=== PATIENT | female | born 1975 | race Caucasian/White ===

== ENCOUNTER 2024-04-21 11:10 | Observation (INO) | payer OTHER ==
[2024-04-21] MEDS: SODIUM CHLORIDE 0.9% 2,000 ML IV ONE (11:46)
[2024-04-21 12:10] LABS: ALT 28 U/L (4-34); AST 53 U/L (14-36); African American GFR (CKD) >90 (>60 ml/min/1.73 sqM); Albumin 4.9 g/dL (3.5-5.0); Alkaline Phosphatase 59 U/L (38-126); Anion Gap 8 mmol/L; Blood Urea Nitrogen 9 mg/dL (7-17); Calcium 9.7 mg/dL (8.4-10.2); Carbon Dioxide 26 mmol/L (22-30); Chloride 107 mmol/L (98-107); Glucose 97 mg/dL (74-99); Non-African American GFR(CKD) >90 (>60 ml/min/1.73 sqM); Potassium 4.3 mmol/L (3.5-5.1); Sodium 141 mmol/L (137-145); Total Bilirubin 0.7 mg/dL (0.2-1.3); Total Protein 8.1 g/dL (6.3-8.2)
[2024-04-21 12:15] LABS: HCT 45.8 % (34.0-46.0); HGB 15.2 gm/dL (11.4-16.0); MCH 32.5 pg (25.0-35.0); MCHC 33.1 g/dL (31.0-37.0); MCV 98.2 fL (80.0-100.0); Mean Platelet Volume 7.1; Platelet Count 235 k/uL (150-450); RBC 4.66 m/uL (3.80-5.40); RDW 13.4 % (11.5-15.5); WBC 5.7 k/uL (3.8-10.6)
--- NOTE | 2024-04-21 12:40 | ED ---
Alcohol HPI - General Chief Complaint: Alcohol Stated Complaint: etoh Time Seen by Provider: 04/21/24 11:13 Source: patient, EMS, RN notes reviewed Mode of arrival: EMS Limitations: no limitations - History of Present Illness Initial Comments: 48-year-old female presents emergency department via EMS from [facility] for alcohol intoxication. Patient was checking in for rehab breath alcohol was greater than.2 and sent here. Patient has no complaints. Patient does admit that she is a daily drinker. She denies any nausea vomiting chest pain headache dizziness no physical complaints no other associate symptoms denies drug abuse. - Related Data Home Medications Medication Instructions Recorded Confirmed No Known Home Medications 04/21/24 04/21/24 Allergies Allergy/AdvReac Type Severity Reaction Status Date / Time No Known Allergies Allergy Verified 04/21/24 13:40 Review of Systems ROS Statement: Those systems with pertinent positive or pertinent negative responses have been documented in the HPI. ROS Other: All systems not noted in ROS Statement are negative. Past Medical History Past Medical History: Hypertension History of Any Multi-Drug Resistant Organisms: None Reported Past Surgical History: Orthopedic Surgery Additional Past Surgical History / Comment(s): Bilat feet surgery, pt unable to answer why Past Psychological History: Anxiety, Depression, PTSD Smoking Status: Never smoker Past Alcohol Use History: Abuse, Daily Past Drug Use History: None Reported General Exam Limitations: no limitations General appearance: alert, in no apparent distress Head exam: Present: atraumatic, normocephalic, normal inspection Eye exam: Present: normal appearance, PERRL, EOMI. Absent: scleral icterus, conjunctival injection, periorbital swelling ENT exam: Present: normal exam, normal oropharynx, mucous membranes moist Neck exam: Present: normal inspection, full ROM. Absent: tenderness, meningismus, lymphadenopathy Respiratory exam: Present: normal lung sounds bilaterally. Absent: respiratory distress, wheezes, rales, rhonchi, stridor Cardiovascular Exam: Present: regular rate, normal rhythm, normal heart sounds. Absent: systolic murmur, diastolic murmur, rubs, gallop, clicks Neurological exam: Present: alert, oriented X3, CN II-XII intact Skin exam: Present: warm, dry, intact, normal color. Absent: rash Course Vital Signs 04/21/24 04/21/24 04/21/24 11:12 13:01 15:05 Temperature 98.5 F 98.0 F 98.0 F Pulse Rate 103 H 94 85 Respiratory 18 18 17 Rate Blood Pressure 128/90 130/82 110/74 O2 Sat by Pulse 97 97 97 Oximetry Medical Decision Making - Medical Decision Making Was pt. sent in by a medical professional or institution (, ZACKERY, MANAGER OF TRAINING AND DEVELOPMENT, urgent care, hospital, or half-way...) When possible be specific @ -[facility] Did you speak to anyone other than the patient for history (EMS, parent, family, police, friend...)? What history was obtained from this source @ -No Did you review nursing and triage notes (agree or disagree)? Why? @ -I reviewed and agree with nursing and triage notes Were old charts reviewed (outside hosp., previous admission, EMS record, old E KG, old radiological studies, urgent care reports/EKG's, half-way records)? Report findings @ -No old charts were reviewed Differential Diagnosis (chest pain, altered mental status, abdominal pain women, abdominal pain men, vaginal bleeding, weakness, fever, dyspnea, syncope, headache, dizziness, GI bleed, back pain, seizure, CVA, palpatations, mental health, musculoskeletal)? @ -Alcohol intoxication, alcohol abuse, alcohol withdrawal EKG interpreted by me (3pts min.). @ -None X-rays interpreted by me (1pt min.). @ -None done CT interpreted by me (1pt min.). @ -None done U/S interpreted by me (1pt. min.). @ -None done What testing was considered but not performed or refused? (CT, X-rays, U/S, labs)? Why? @ -None What meds were considered but not given or refused? Why? @ -None Did you discuss the management of the patient with other professionals (professionals i.e. ZACKERY Islas, MANAGER OF TRAINING AND DEVELOPMENT, lab, RT, psych nurse, social work program coordinator, director print, teacher, division officer weapons department, immigration case worker)? Give summary @ -Dr. Rivas for admission for alcohol intoxication, alcohol abuse Was smoking cessation discussed for >3mins.? @ -No Was critical care preformed (if so, how long)? @ -No Were there social determinants of health that impacted care today? How? (Homelessness, low income, unemployed, alcoholism, drug addiction, transportation, low edu. Level, literacy, decrease access to med. care, correction, rehab)? @ -No Was there de-escalation of care discussed even if they declined (Discuss DNR or withdrawal of care, Hospice)? DNR status @ -No What co-morbidities impacted this encounter? (DM, HTN, Smoking, COPD, CAD, Cancer, CVA, ARF, Chemo, Hep., AIDS, mental health diagnosis, sleep apnea, morbid obesity)? @ -None Was patient admitted / discharged? Hospital course, mention meds given and route, prescriptions, significant lab abnormalities, going to OR and other pertinent info. @ -Admitted patient sent in from [facility] for severe alcohol desiccation blood alcohol is 373, other laboratory studies unremarkable case discussed with admitting patient placed on CIWA, alcohol withdrawal Undiagnosed new problem with uncertain prognosis? @ -No Drug Therapy requiring intensive monitoring for toxicity (Heparin, Nitro, Insulin, Cardizem)? @ -No Were any procedures done? @ -No Diagnosis/symptom? @ -Alcohol intoxication, alcohol abuse Acute, or Chronic, or Acute on Chronic? @ -Acute Uncomplicated (without systemic symptoms) or Complicated (systemic symptoms)? @ -Complicated Side effects of treatment? @ -No Exacerbation, Progression, or Severe Exacerbation? @ -No Poses a threat to life or bodily function? How? (Chest pain, USA, ND, pneumonia, PE, COPD, DKA, ARF, appy, cholecystitis, CVA, Diverticulitis, Homicidal, Suicidal, threat to staff... and all critical care pts) @ -Yes alcohol withdrawal - Lab Data Result diagrams: 04/21/24 11:41 04/21/24 11:41 Lab Results 04/21/24 04/21/24 04/21/24 Range/Units 11:41 11:41 14:05 WBC 5.7 (3.8-10.6) k/uL RBC 4.66 (3.80-5.40) m/uL Hgb 15.2 (11.4-16.0) gm/dL Hct 45.8 (34.0-46.0) % MCV 98.2 (80.0-100.0) fL MCH 32.5 (25.0-35.0) pg MCHC 33.1 (31.0-37.0) g/dL RDW 13.4 (11.5-15.5) % Plt Count 235 (150-450) k/uL MPV 7.1 Neutrophils % (Manual) 59 % Lymphocytes % (Manual) 27 % Monocytes % (Manual) 13 % Eosinophils % (Manual) 1 % Neutrophils # (Manual) 3.36 (1.3-7.7) k/uL Lymphocytes # (Manual) 1.54 (1.0-4.8) k/uL Monocytes # (Manual) 0.74 (0-1.0) k/uL Eosinophils # (Manual) 0.06 (0-0.7) k/uL Nucleated RBCs 0 (0-0) /100 WBC Manual Slide Review Performed RBC Morphology Normal Sodium 141 (137-145) mmol/L Potassium 4.3 (3.5-5.1) mmol/L Chloride 107 (98-107) mmol/L Carbon Dioxide 26 (22-30) mmol/L Anion Gap 8 mmol/L BUN 9 (7-17) mg/dL Creatinine 0.70 (0.52-1.04) mg/dL Est GFR (CKD-EPI)AfAm >90 (>60 ml/min/1.73 sqM) Est GFR (CKD-EPI)NonAf >90 (>60 ml/min/1.73 sqM) Glucose 97 (74-99) mg/dL Calcium 9.7 (8.4-10.2) mg/dL Magnesium 2.0 (1.6-2.3) mg/dL Total Bilirubin 0.7 (0.2-1.3) mg/dL AST 53 H (14-36) U/L ALT 28 (4-34) U/L Alkaline Phosphatase 59 (38-126) U/L Total Protein 8.1 (6.3-8.2) g/dL Albumin 4.9 (3.5-5.0) g/dL Serum Alcohol 373 H* mg/dL Disposition Clinical Impression: Alcoholic intoxication, Alcohol abuse Disposition: ADMITTED IP TO THIS HOSP Condition: Stable Is patient prescribed a controlled substance at d/c from ED?: No Referrals: None,Stated [Primary Care Provider] - 1-2 days Time of Disposition: 13:42
[2024-04-21 13:47] LABS: Eosinophils # (M) 0.06 k/uL (0-0.7); Lymphocytes # (M) 1.54 k/uL (1.0-4.8); Monocytes # (M) 0.74 k/uL (0-1.0); Neutrophils # (M) 3.36 k/uL (1.3-7.7); Neutrophils % (M) 59 %; Nucleated Red Blood Cells 0 /100 WBC (0-0); Total Cells Counted 100
[2024-04-21 13:48] LABS: RBC Morphology Normal
[2024-04-21 15:10] LABS: Appearance,Urine Clear (Clear); Bilirubin,Urine Negative (Negative); Blood,Urine Negative (Negative); Color,Urine Colorless; Glucose,Urine (UA) Negative (Negative); Ketones,Urine Negative (Negative); Leukocyte Esterase,Urine Negative (Negative); Nitrite,Urine Negative (Negative); Protein,Urine Negative (Negative); Specific Gravity,Urine 1.004 (1.001-1.035); Urobilinogen,Urine <2.0 mg/dL (<2.0)
[2024-04-21] MEDS ORDERED: LORazepam 2 MG/ML INJ IV PRN ×3 (15:12)
[2024-04-21] MEDS ORDERED: ONDANSETRON 4 MG/2 ML VIAL IVP PRN (15:13)
[2024-04-21] MEDS ORDERED: NALOXONE 0.4 MG/ML 1 ML VIAL IV PRN (15:13)
[2024-04-21] MEDS ORDERED: IBUPROFEN 400 MG TAB PO PRN (15:13)
[2024-04-21] MEDS: SODIUM CHLORIDE 0.9% 1,000 ML IV SCH (15:22)
[2024-04-21 15:41] LABS: Amphetamine Screen,Urine Not Detected (NotDetected); Barbiturate Screen,Urine Not Detected (NotDetected); Benzodiazepines Screen,Urine Detected (NotDetected); Cocaine Screen,Urine Not Detected (NotDetected); Methadone Screen, Urine Not Detected (NotDetected); Opiate Screen,Urine Not Detected (NotDetected); Oxycodone Screen, Urine Not Detected (NotDetected); Phencyclidine Screen,Urine Not Detected (NotDetected); Tricyclic Antidepressant,Urine Not Detected (NotDetected); Urn Cannabinoid Scrn Not Detected (NotDetected)
--- NOTE | 2024-04-21 16:16 | P.HPIM ---
History of Present Illness H&P Date: 04/21/24 Chief Complaint: Alcohol withdrawal [id number] white female who reported the hospital with alcohol intoxication. Last drink was 2 days ago as per patient patient was found to be drinking in the emergency room. She reports anxiety and tremors associated with chills. She denies subjective fever, no diarrhea, no nausea no vomiting. No hematuria dysuria hematemesis or hematochezia. At the time of examination patient appears to be slightly oriented. She does not appear to be in distress. Review of Systems 10 systems reviewed, pertinent positive and negative findings as in HPI, no chest pain no abdominal pain. Past Medical History Past Medical History: Hypertension History of Any Multi-Drug Resistant Organisms: None Reported Past Surgical History: Orthopedic Surgery Additional Past Surgical History / Comment(s): Bilat feet surgery, pt unable to answer why Past Psychological History: Anxiety, Depression, PTSD Smoking Status: Never smoker Past Alcohol Use History: Abuse, Daily Past Drug Use History: None Reported Medications and Allergies Home Medications Medication Instructions Recorded Confirmed Type No Known Home Medications 04/21/24 04/21/24 History Allergies Allergy/AdvReac Type Severity Reaction Status Date / Time No Known Allergies Allergy Verified 04/21/24 13:40 Physical Exam Vitals: Vital Signs Temp Pulse Resp BP Pulse Ox 04/21/24 15:05 98.0 F 85 17 110/74 97 04/21/24 13:01 98.0 F 94 18 130/82 97 04/21/24 11:12 98.5 F 103 H 18 128/90 97 Intake and Output 04/21/24 04/21/24 04/21/24 06:59 14:59 22:59 Other: Weight 58.967 kg Constitutional: No acute distress, conversant, pleasant Eyes: Anicteric sclerae, moist conjunctiva, no lid-lag, PERRLA ENMT: NC/AT,Oropharynx clear, no erythema, exudates Neck:Supple, FROM, no masses, or JVD, No carotid bruits; No thyromegaly Lungs: Clear to auscultation, Clear to percussion, Normal respiratory effort, no accessory muscle use Cardiovascular: Heart regular in rate and rhythm, No murmurs, gallops, or rubs no peripheral edema Abdominal: Soft Nontender, nom distended, no guarding, no rebound or rigidity, Normoactive bowel sounds No hepatomegaly, No splenomegaly, No palpable mass No abdominal wall hernia noted Skin: Normal temperature, tone, texture, turgor, No induration No subcutaneous nodules, No rash, lesions, No ulcers Extremities:No digital cyanosis No clubbing, Pedal pulses intact and symmetric al Radial pulses intact and symmetrical Normal gait and station, No calf tenderness Psychiatric: Alert and oriented to person, place and time, Appropriate affect Intact judgement Neuro: Muscles Strength 5/5 in all 4 extremities, Sensation to light touch grossly present throughout, Cranial nerves II-XII grossly intact. No focal sensory deficits Results CBC & Chem 7: 04/21/24 11:41 04/21/24 11:41 Labs: Abnormal Lab Results - Last 24 Hours (Table) 04/21/24 04/21/24 04/21/24 Range/Units 11:41 14:05 Unknown AST 53 H (14-36) U/L U Benzodiazepines Scrn Detected H (NotDetected) Serum Alcohol 373 H* mg/dL Assessment and Plan Plan: Assessment: 1. Alcohol use/dependence with Withdrawal symptoms, [facility] protocol, supportive care. IV Fluids.Vitamins. 2.Anxiety: Anxiolytics when necessary.
[2024-04-21] MEDS: LORazepam 0.5 MG TAB PO PRN (23:23)
[2024-04-22] MEDS: THIAMINE 100 MG TAB PO SCH (09:32)
[2024-04-22] MEDS: LORazepam 1 MG TAB PO PRN (09:39)
--- NOTE | 2024-04-22 09:40 | P.PN ---
Subjective Progress Note Date: 04/22/24 Feels better today, still feels anxious and nauseated, no vomiting, no chest pain, no abdominal pain, Remains afebrile Objective - Vital Signs Vital signs: Vital Signs Temp 98.6 F 04/22/24 07:00 Pulse 65 04/22/24 07:00 Resp 16 04/22/24 07:00 BP 137/90 04/22/24 07:00 Pulse Ox 98 04/22/24 07:00 FiO2 Intake & Output 04/21/24 04/22/24 04/22/24 18:59 06:59 18:59 Weight 58.967 kg 58.967 kg Other: # Voids 3 - Exam Constitutional: No acute distress, conversant, pleasant Eyes: Anicteric sclerae, moist conjunctiva, no lid-lag, PERRLA ENMT: NC/AT,Oropharynx clear, no erythema, exudates Neck:Supple, FROM, no masses, or JVD, No carotid bruits; No thyromegaly Lungs: Clear to auscultation, Clear to percussion, Normal respiratory effort, no accessory muscle use Cardiovascular: Heart regular in rate and rhythm, No murmurs, gallops, or rubs no peripheral edema Abdominal: Soft Nontender, nom distended, no guarding, no rebound or rigidity, Normoactive bowel sounds No hepatomegaly, No splenomegaly, No palpable mass No abdominal wall hernia noted Skin: Normal temperature, tone, texture, turgor, No induration No subcutaneous nodules, No rash, lesions, No ulcers Extremities:No digital cyanosis No clubbing, Pedal pulses intact and symm etrical Radial pulses intact and symmetrical Normal gait and station, No calf tenderness Psychiatric: Alert and oriented to person, place and time, Appropriate affect Intact judgement Neuro: Muscles Strength 5/5 in all 4 extremities, Sensation to light touch grossly present throughout, Cranial nerves II-XII grossly intact. No focal sensory deficits - Labs CBC & Chem 7: 04/21/24 11:41 04/21/24 11:41 Labs: Abnormal Lab Results - Last 24 Hours (Table) 04/21/24 04/21/24 04/21/24 Range/Units 11:41 14:05 Unknown AST 53 H (14-36) U/L U Benzodiazepines Scrn Detected H (NotDetected) Serum Alcohol 373 H* mg/dL Assessment and Plan Plan: Assessment: 1. Alcohol use/dependence with Withdrawal symptoms, [facility] protocol, supportive care. IV Fluids.Vitamins.Gradually improving. 2.Anxiety: Anxiolytics when necessary. Disposition: Home likely tomorrow
[2024-04-22 10:08] LABS: ALT 23 U/L (8-44); AST 28 U/L (13-35); Albumin 3.8 g/dL (3.8-4.9); Albumin/Globulin Ratio 1.73 Ratio (1.60-3.17); Alkaline Phosphatase 46 U/L (41-126); BUN/Creat Ratio 11.83 Ratio (12.00-20.00); Blood Urea Nitrogen 7.1 mg/dL (9.0-27.0); Calcium 8.3 mg/dL (8.7-10.3); Carbon Dioxide 23.6 mmol/L (21.6-31.8); Chloride 106 mmol/L (96-109); Globulin 2.2 g/dL (1.6-3.3); Glucose 89 mg/dL (70-110); Potassium 4.2 mmol/L (3.5-5.5); Sodium 140 mmol/L (135-145); Total Bilirubin 0.4 mg/dL (0.3-1.2)
[2024-04-22 10:53] LABS: Basophils # (A) 0.02 X 10*3/uL (0.00-0.10); Basophils % (A) 0.5 %; Eosinophils % (A) 2.6 %; HCT 36.8 % (37.2-46.3); HGB 12.4 g/dL (12.0-15.0); Lymphocytes # (A) 1.43 X 10*3/uL (0.90-5.00); MCH 32.8 pg (27.0-32.0); MCHC 33.7 g/dL (32.0-37.0); MCV 97.4 FL (80.0-97.0); Mean Platelet Volume 9.4 FL (9.5-12.2); Monocytes # (A) 0.45 X 10*3/uL (0.20-1.00); Monocytes % (A) 11.7 %; NRBC Per 100 WBC 0 X 10*3/uL (0.00-0.01); Neutrophils # (A) 1.85 X 10*3/uL (1.80-7.70); Neutrophils % (A) 47.9 %; Platelet Count 164 X 10*3/uL (140-440); RBC 3.78 X 10*6/uL (4.10-5.20); RDW 14.3 % (11.5-14.5); WBC 3.86 X 10*3/uL (4.50-10.00)
[2024-04-23 07:21] VITALS: BP 144/93; PULSE 70; RESP 17; TEMP 98
[2024-04-23 08:41] LABS: Basophils # (A) 0.03 X 10*3/uL (0.00-0.10); Basophils % (A) 0.7 %; Eosinophils # (A) 0.09 X 10*3/uL (0.04-0.35); HGB 13.4 g/dL (12.0-15.0); Lymphocytes # (A) 1.23 X 10*3/uL (0.90-5.00); Lymphocytes % (A) 26.9 %; MCHC 33.5 g/dL (32.0-37.0); MCV 98.5 FL (80.0-97.0); Mean Platelet Volume 9.7 FL (9.5-12.2); Monocytes # (A) 0.41 X 10*3/uL (0.20-1.00); NRBC Per 100 WBC 0 X 10*3/uL (0.00-0.01); Platelet Count 156 X 10*3/uL (140-440); RBC 4.06 X 10*6/uL (4.10-5.20); RDW 13.7 % (11.5-14.5); WBC 4.58 X 10*3/uL (4.50-10.00)
[2024-04-23 08:55] LABS: ALT 22 U/L (8-44); AST 24 U/L (13-35); Albumin 4.1 g/dL (3.8-4.9); Albumin/Globulin Ratio 1.64 Ratio (1.60-3.17); Alkaline Phosphatase 49 U/L (41-126); BUN/Creat Ratio 10.86 Ratio (12.00-20.00); Blood Urea Nitrogen 7.6 mg/dL (9.0-27.0); Calcium 9.1 mg/dL (8.7-10.3); Chloride 104 mmol/L (96-109); Globulin 2.5 g/dL (1.6-3.3); Glucose 108 mg/dL (70-110); Potassium 4.3 mmol/L (3.5-5.5); Sodium 139 mmol/L (135-145); Total Bilirubin 0.4 mg/dL (0.3-1.2); Total Protein 6.6 g/dL (6.2-8.2)
[2024-04-23] MEDS: ACETAMINOPHEN TAB 325 MG TAB PO PRN (09:42)
--- NOTE | 2024-04-23 10:03 | P.DS ---
Providers Date of admission: 04/21/24 14:03 Expected date of discharge: 04/23/24 Attending physician: Kurt Rivas MD Primary care physician: Stated None Hospital Course: Discharge diagnosis: 1. Alcohol use/dependence with Withdrawal symptoms, CIWA protocol, supportive care. IV Fluids.Vitamins.Gradually improving. 2.Anxiety: Anxiolytics when necessary. H&P Date: 04/21/24 Chief Complaint: Alcohol withdrawal [id number]-[id number]-wjp white female who reported the hospital with alcohol intoxication. Last drink was 2 days ago as per patient patient was found to be drinking in the emergency room. She reports anxiety and tremors associated with chills. She denies subjective fever, no diarrhea, no nausea no vomiting. No hematuria dysuria hematemesis or hematochezia. At the time of examination patient appears to be slightly oriented. She does not appear to be in distress. Hospital course and treatment: Patient was admitted to the hospital with Alcohol withdrawal,She was placed on CIWA protocol, alcohol withdrawal continued to improve. She continued to have anxiety. She was monitored in the hospital, since she has improved she'll be discharged home and will go to outpatient alcohol rehab. Patient Condition at Discharge: Fair Plan - Discharge Summary Discharge Rx Participant: No New Discharge Prescriptions: Continue No Known Home Medications Discharge Medication List No Known Home Medications 04/21/24 [History] Follow up Appointment(s)/Referral(s): None,Stated [Primary Care Provider] - 1-2 days Discharge Disposition: HOME SELF-CARE
== END 2024-04-23 11:38 | disposition home or self-care (01) ==
LOC: EC 11:10 → 6NMEDSUR 14:03
PROVIDERS: ADMIT Student in an Organized Health Care Education/Training Program; ATTEND Student in an Organized Health Care Education/Training Program
DX: F10.239 Alcohol dependence with withdrawal, unspecified (principal); I10 Essential (primary) hypertension; F41.9 Anxiety disorder, unspecified; F32.A Depression, unspecified; F43.10 Post-traumatic stress disorder, unspecified
CPT/HCPCS: 82075; 96360; 96361; 99285; 36415; 80053 ×3; 83735; 85025 ×3; 81003; 80306; G0378 ×3; G0480; 80320